=== PATIENT | male | born 1985 | race Caucasian/White ===

== ENCOUNTER 2017-03-25 07:43 | Emergency (ER) | payer BC ==
[~2017-03-25] VITALS: Ht 170.1 cm; Wt 88.5 kg
[~2017-03-25 07:43] MED LIST: LOTRIMIN 1%15 GM T; PREDNISONE20 MG PO
[2017-03-25] MEDS ORDERED: PREDNISONE50 MG PO (08:14)
== END 2017-03-25 08:18 | disposition home or self-care (01) ==
LOC: ED 07:43
DX: S66.912A Strain of unspecified muscle, fascia and tendon at wrist and hand level, left hand, initial encounter (principal); Z88.0 Allergy status to penicillin; X58.XXXA Exposure to other specified factors, initial encounter; Y93.89 Activity, other specified; Y92.89 Other specified places as the place of occurrence of the external cause; Y99.8 Other external cause status

== ENCOUNTER 2017-05-31 12:52 | Emergency (ER) | payer BC ==
[~2017-05-31] VITALS: Ht 167.6 cm; Wt 93.0 kg
[~2017-05-31 12:52] MED LIST changes: +PREDNISONE50 MG PO
[2017-05-31] MEDS ORDERED: CLEOCIN150 MG PO (13:13)
[2017-05-31] MEDS ORDERED: ADVAIR 250/501 EA INH (13:13)
[2017-05-31] MEDS ORDERED: SIMVASTATIN20 MG PO (13:13)
[2017-05-31 13:47] LABS: BASO % 0.6 % (0.0-1.0); EOS # 0.1 10*3/uL (0.0-0.4); EOS % 2.6 % (1.0-4.0); HEMATOCRIT 36.7 % (42.0-52.0); HEMOGLOBIN 12.9 g/dl (14.0-18.0); LYMPH # 1.3 10*3/uL (1.3-4.4); LYMPH % 26.4 % (27.0-41.0); MEAN CELL VOLUME 87.6 fl (80.0-94.0); MEAN CORPUSCULAR HGB 30.8 pg (27.0-31.0); MEAN CORPUSCULAR HGB CONC 35.1 g/dl (33.0-37.0); MEAN PLATELET VOLUME 10.1 fl (9.6-12.3); MONO # 0.6 10*3/uL (0.1-1.0); NEUT # 2.9 10*3/uL (2.3-7.9); NEUT % 58.2 % (47.0-73.0); NUCLEATED RED BLOOD CELL 0.8 % (0.0-0.0); PLATELET COUNT AUTOMATED 195 10*3/uL (130-400); RED BLOOD COUNT 4.19 10*6/uL (4.50-5.90); RED CELL DISTRI WIDTH 12.4 % (0-14.5)
[2017-05-31 14:09] LABS: ALBUMIN 3.8 gm/dl (3.1-4.5); ALKALINE PHOSPHATASE 75 U/L (45-117); BUN 15 mg/dl (7-24); CHLORIDE 104 mmol/L (98-107); CREATININE 0.89 mg/dL (0.70-1.30); POTASSIUM 3.7 mmol/L (3.5-5.1); SGOT/AST 42 IU/L (3-35); SGPT/ALT 67 U/L (12-78); SODIUM 140 mmol/L (136-145); TOTAL PROTEIN 7.1 gm/dL (6.4-8.2)
[2017-05-31] MEDS ORDERED: Peridex 473 ML473 ML PO (15:08)
[2017-05-31] MEDS ORDERED: NAPROSYN500 MG PO (15:08)
[2017-05-31] MEDS ORDERED: LIDOCAINE HCL 330 M1 T (15:08)
== END 2017-05-31 15:34 | disposition home or self-care (01) ==
LOC: ED 12:52
PROVIDERS: Nurse Practitioner Family
DX: K08.89 Other specified disorders of teeth and supporting structures (principal); R03.0 Elevated blood-pressure reading, without diagnosis of hypertension; G89.18 Other acute postprocedural pain; Z88.0 Allergy status to penicillin

== ENCOUNTER 2017-11-14 12:38 | Emergency (ER) | payer OTHER ==
[~2017-11-14] VITALS: Ht 167.6 cm; Wt 90.7 kg
[~2017-11-14 12:38] MED LIST changes: +ADVAIR 250/501 EA INH; +CLEOCIN150 MG PO; +LIDOCAINE HCL 330 M1 T; +NAPROSYN500 MG PO; +Peridex 473 ML473 ML PO; +SIMVASTATIN20 MG PO
[2017-11-14] MEDS ORDERED: PREDNISONE10 MG PO (12:52)
== END 2017-11-14 12:57 | disposition home or self-care (01) ==
LOC: ED 12:38
DX: L30.9 Dermatitis, unspecified (principal); R03.0 Elevated blood-pressure reading, without diagnosis of hypertension; Z88.0 Allergy status to penicillin

== ENCOUNTER 2020-04-09 13:47 | Emergency (ER) | payer OTHER ==
[~2020-04-09] VITALS: Wt 93.0 kg
[~2020-04-09 13:47] MED LIST changes: +PREDNISONE10 MG PO
[2020-04-09] MEDS ORDERED: PROVENTIL HFA6.7 GM INH (14:35)
[2020-04-09] MEDS ORDERED: PREDNISONE20 M1 PO (14:35)
== END 2020-04-09 17:17 | disposition home or self-care (01) ==
LOC: ED 13:47
DX: J45.901 Unspecified asthma with (acute) exacerbation (principal); Z20.828 Contact with and (suspected) exposure to other viral communicable diseases; Z88.0 Allergy status to penicillin

== ENCOUNTER 2022-01-25 16:08 | Emergency (ER) | payer OTHER ==
[~2022-01-25] VITALS: Ht 167.6 cm; Wt 81.6 kg
[~2022-01-25 16:08] MED LIST changes: +PREDNISONE20 M1 PO; +PROVENTIL HFA6.7 GM INH
== END 2022-01-25 17:10 | disposition left against medical advice (07) ==
LOC: ED 16:08
DX: Z53.21 Procedure and treatment not carried out due to patient leaving prior to being seen by health care provider (principal)

== ENCOUNTER 2022-08-07 23:12 | Emergency (ER) | payer OTHER ==
[~2022-08-07] VITALS: Ht 167.6 cm; Wt 61.2 kg
[2022-08-07] MEDS ORDERED: NAPROSYN500 MG PO (23:51)
[2022-08-07] MEDS ORDERED: PREDNISONE50 MG PO (23:51)
== END 2022-08-07 23:56 | disposition home or self-care (01) ==
LOC: ED 23:12
DX: M25.532 Pain in left wrist (principal); J45.909 Unspecified asthma, uncomplicated; Z88.0 Allergy status to penicillin

== ENCOUNTER 2022-12-23 20:11 | Emergency (ER) | payer OTHER ==
[~2022-12-23] VITALS: Ht 170.1 cm; Wt 83.9 kg
[2022-12-23] MEDS ORDERED: ADV 500/50 INH (20:23)
== END 2022-12-23 21:18 | disposition home or self-care (01) ==
LOC: ED 20:11
DX: J45.901 Unspecified asthma with (acute) exacerbation (principal); Z88.0 Allergy status to penicillin; Z79.899 Other long term (current) drug therapy

== ENCOUNTER 2023-02-10 07:05 | Emergency (ER) | payer OTHER ==
[~2023-02-10] VITALS: Wt 81.6 kg
[~2023-02-10 07:05] MED LIST changes: +ADV 500/50 INH
[2023-02-10] MEDS ORDERED: MELOXICAM15 MG PO (07:47)
== END 2023-02-10 07:57 | disposition home or self-care (01) ==
LOC: ED 07:05
DX: S93.401A Sprain of unspecified ligament of right ankle, initial encounter (principal); J45.909 Unspecified asthma, uncomplicated; Z88.0 Allergy status to penicillin; V89.2XXA Person injured in unspecified motor-vehicle accident, traffic, initial encounter; Y93.89 Activity, other specified; Y92.410 Unspecified street and highway as the place of occurrence of the external cause; Y99.8 Other external cause status

== ENCOUNTER 2023-02-14 22:45 | Emergency (ER) | payer OTHER ==
[~2023-02-14] VITALS: Ht 170.1 cm; Wt 81.6 kg
[~2023-02-14 22:45] MED LIST changes: +MELOXICAM15 MG PO
[2023-02-14 23:06] LABS: BASO % 0.3 % (0.0-1.0); EOS # 0.1 10*3/uL (0.0-0.4); EOS % 1.2 % (1.0-4.0); HEMATOCRIT 41.5 % (42.0-52.0); LYMPH # 2.7 10*3/uL (1.3-4.4); MEAN CELL VOLUME 88.1 fl (80.0-94.0); MEAN CORPUSCULAR HGB 30.1 pg (27.0-31.0); MEAN CORPUSCULAR HGB CONC 34.2 g/dl (33.0-37.0); MEAN PLATELET VOLUME 9.2 fl (9.6-12.3); MONO # 0.7 10*3/uL (0.1-1.0); MONO % 6.2 % (3.0-9.0); NEUT # 7.9 10*3/uL (2.3-7.9); NEUT % 68.9 % (47.0-73.0); PLATELET COUNT AUTOMATED 344 10*3/uL (130-400); RED BLOOD COUNT 4.71 10*6/uL (4.50-5.90); RED CELL DISTRI WIDTH 12.2 % (0-14.5); WHITE BLOOD COUNT 11.5 10*3/uL (4.8-10.8)
[2023-02-14 23:20] LABS: ACT PARTIAL THROMBO TIME 24.5 SECONDS (20.0-32.1)
[2023-02-14 23:30] LABS: ALKALINE PHOSPHATASE 99 U/L (46-116); BUN 16 mg/dl (9-23); CHLORIDE 105 mmol/L (98-107); LIPASE 27 U/L (12-53); POTASSIUM 4.3 mmol/L (3.4-5.1); SGPT/ALT 47 U/L (5-49); TOTAL PROTEIN 6.4 gm/dL (6.0-8.0)
[2023-02-14 23:33] LABS: ETHYL ALCOHOL < 3.0 mg/dl (<3)
[2023-02-15] MEDS ORDERED: PREDNISONE50 MG PO (01:13)
== END 2023-02-15 01:27 | disposition home or self-care (01) ==
LOC: ED 22:45
PROVIDERS: Internal Medicine
DX: T78.2XXA Anaphylactic shock, unspecified, initial encounter (principal); L50.9 Urticaria, unspecified; R23.8 Other skin changes; F17.210 Nicotine dependence, cigarettes, uncomplicated; Z88.0 Allergy status to penicillin; Z79.899 Other long term (current) drug therapy; Z79.2 Long term (current) use of antibiotics

== ENCOUNTER → 2023-03-31 | Outpatient (CLI) | payer OTHER ==
[2023-03-31 13:48] LABS: URINE AMPHETAMINES Negative (1000ng/ml); URINE BARBITURATES Negative (200ng/ml); URINE BENZODIAZEPINES Negative (200ng/ml); URINE CANNABINOIDS (THC) Positive (50ng/ml); URINE COCAINE Negative (300ng/ml); URINE METHADONE Negative (300ng/ml); URINE OPIATES Negative (300ng/ml); URINE PHENCYCLIDINE Negative (25ng/ml)
== END | disposition home or self-care (01) ==
LOC: LAB 13:17
PROVIDERS: ATTEND Podiatrist
DX: Z79.899 Other long term (current) drug therapy (principal)

== ENCOUNTER 2023-07-16 11:59 | Emergency (ER) | payer SELFPAY ==
[~2023-07-16] VITALS: Ht 170.1 cm; Wt 95.3 kg
[2023-07-16] MEDS ORDERED: methylPREDNISolone sod succ 125 MG VIAL IM ONE (12:20)
[2023-07-16] MEDS ORDERED: Albuterol Sulf/Ipratropium 3 ML VIAL NEB ONE (12:20)
[2023-07-16] MEDS ORDERED: Ketorolac Tromethamine 30 MG/ML VIAL IM ONE (12:30)
[2023-07-16] MEDS ORDERED: IBUPROFEN 800 MG TAB PO ONE (12:40)
[2023-07-16 13:01] LABS: HEMATOCRIT 45.6 % (42.0-52.0); MEAN CELL VOLUME 85.9 fl (80.0-94.0); MEAN CORPUSCULAR HGB CONC 33.8 g/dl (33.0-37.0); MEAN PLATELET VOLUME 9.8 fl (9.6-12.3); PLATELET COUNT AUTOMATED 243 10*3/uL (130-400); RED BLOOD COUNT 5.31 10*6/uL (4.50-5.90); RED CELL DISTRI WIDTH 13.2 % (0-14.5); WHITE BLOOD COUNT 18.5 10*3/uL (4.8-10.8)
[2023-07-16 13:03] LABS: MANUAL DIFF REFLEX YES
[2023-07-16 13:22] LABS: ALKALINE PHOSPHATASE 134 U/L (46-116); BUN 11 mg/dl (9-23); CHLORIDE 100 mmol/L (98-107); POTASSIUM 3.9 mmol/L (3.4-5.1); SGPT/ALT 31 U/L (5-49); TOTAL PROTEIN 8.2 gm/dL (6.0-8.0)
[2023-07-16 13:27] LABS: BURR CELLS FEW; PLATELET SUFFICIENCY NORMAL (NORMAL); POLYCHROMASIA SLIGHT; ROULEAUX SLIGHT; TOTAL CELLS COUNTED 100 #CELLS; TOXIC GRANULATION SLIGHT; VACUOLATION OF NEUTROPHILS SLIGHT
[2023-07-16] MEDS ORDERED: IOHEXOL 350 MG/ML 100 ML VIAL IV ONE (13:40)
[2023-07-16] MEDS ORDERED: SODIUM CHLORIDE 0.9% 100 ML BAG IV ONE (13:40)
== END 2023-07-16 16:57 | disposition home or self-care (01) ==
LOC: ED 11:59
PROVIDERS: Physician Assistant Medical
DX: J06.9 Acute upper respiratory infection, unspecified (principal); Z20.822 Contact with and (suspected) exposure to COVID-19; H92.01 Otalgia, right ear; J45.909 Unspecified asthma, uncomplicated; Z88.0 Allergy status to penicillin; Z88.8 Allergy status to other drugs, medicaments and biological substances